=== PATIENT | female | born 1945 | race Caucasian/White ===

== ENCOUNTER → 2018-12-17 | Outpatient (CLI) | payer OTHER ==
--- NOTE | 2018-12-17 11:24 | RAD ---
EXAM: Chest, 2 views. HISTORY: Shortness of breath. COMPARISON: None. FINDINGS: 2 views the chest are obtained. There is hyperinflation due to emphysema. There is no pleural effusion or pneumothorax. The heart is normal in size. There are healed rib fractures. There is increased thoracic kyphosis. IMPRESSION: 1. Emphysema. 2. No acute pulmonary finding. Electronically signed by: Rosmery Fraser MD (12/17/2018 11:21 AM) [place] [id number]
== END | disposition home or self-care (01) ==
LOC: RAD 10:03
PROVIDERS: ATTEND Internal Medicine Pulmonary Disease
DX: J43.9 Emphysema, unspecified (principal); M40.294 Other kyphosis, thoracic region
CPT/HCPCS: 71046